=== PATIENT | female | born 1930 | race African-American/Black ===

== ENCOUNTER 2017-09-29 08:50 | Inpatient (IN) | payer MEDICARE, MEDICAID ==
[2017-09-29] VITALS (18 sets, daily range): BP systolic 123–152; BP diastolic 64–94
[~2017-09-29] VITALS: Ht 167.6 cm; Wt 72.6 kg
[2017-09-29 09:31] LABS: BASOPHILS % 0.6 % (0.0-2.0); EOSINOPHILS % 0.3 % (0.0-5.0); HEMATOCRIT. 35.7 % (36.0-48.0); HEMOGLOBIN. 11.1 g/dL (12.0-16.0); LYMPHOCYTES % 16.1 % (20.0-50.0); MEAN CORPUSCULAR HEMOGLOBIN 25.3 pg (28.0-32.0); MEAN CORPUSCULAR VOLUME 81.1 fL (81.0-99.0); MEAN PLATELET VOLUME 7.8 fl (7.4-10.4); MONOCYTES % 5.8 % (2.0-8.0); NEUTROPHILS % 77.2 % (40.0-76.0); PLATELET 314 x1000/uL (130-400); RED CELL DISTRIBUTION WIDTH 16.3 % (11.6-14.6)
[2017-09-29 09:39] LABS: CHLORIDE 92 mEq/L (98-107)
[2017-09-29 09:41] LABS: D-DIMER 0.56 mg/L FEU (<0.50); INR 1.1; PROTHROMBIN TIME 11.4 sec (9.4-11.6)
[2017-09-29] MEDS ORDERED: PROPOFOL 10MG/ML 100ML 100 ML IV SCH (09:45)
[2017-09-29 09:56] LABS: AMMONIA 14 uMol/L (<32)
[2017-09-29 10:01] LABS: BG BASE EXCESS -3.1 mmol/L (-2.0-2.0); BG CARBOXYHEMOGLOBIN 0.9 % (0.5-1.5); BG DEOXYHEMOGLOBIN 0.8 % (0.0-5.0); BG FRACTION INSPIRED OXYGEN 100; BG HCO3 ACT 28.1 mmol/L (22.0-26.0); BG METHEMOGLOBIN 0.1 % (0.0-1.5); BG OXYGEN SATURATION 99.2 % (92.0-98.5); BG OXYHEMOGLOBIN 98.2 % (94.0-97.0); BG PCO2 87.9 mmHg (35.0-45.0); BG PH 7.122 (7.350-7.450); BG PO2 218.1 mmHg (75.0-100.0); BG SAMPLE SITE RIGHT BRACHIAL; BG TIDAL VOLUME(mL) 550 mL; BG TOTAL HEMOGLOBIN 12.2 g/dL (12.0-18.0); BG VENT MODE VENT - A/C; BG VENT RATE 16 set
[2017-09-29 10:21] LABS: CLARITY URINE CLOUDY (CLEAR); COLOR URINE YELLOW (YELLOW); KETONES URINE NEGATIVE (NEGATIVE); LEUKOCYTE ESTERASE URINE NEGATIVE (NEGATIVE); NITRITE URINE NEGATIVE (NEGATIVE); OCCULT BLOOD URINE 1+ (NEGATIVE); PROTEIN URINE 3+ (NEGATIVE); SPECIFIC GRAVITY URINE 1.028 (1.005-1.030)
[2017-09-29 10:59] LABS: *AMPHETAMINES SCREEN URINE NEGATIVE (NEGATIVE); *BARBITURATES SCREEN URINE NEGATIVE (NEGATIVE); *COCAINE SCREEN URINE NEGATIVE (NEGATIVE)
[2017-09-29 11:00] LABS: *BENZODIAZEPINES SCREEN URINE NEGATIVE (NEGATIVE); CANNABINOID URINE SCREEN NEGATIVE (NEGATIVE); METHADONE URINE SCREEN NEGATIVE (NEGATIVE); OPIATES URINE SCREEN NEGATIVE (NEGATIVE); PHENCYCLIDINE URINE SCREEN NEGATIVE (NEGATIVE)
[2017-09-29 12:07] LABS: INR 1.1; PROTHROMBIN TIME 11.3 sec (9.4-11.6)
[2017-09-29 12:15] LABS: BG BASE EXCESS 2.4 mmol/L (-2.0-2.0); BG CARBOXYHEMOGLOBIN 0.8 % (0.5-1.5); BG DEOXYHEMOGLOBIN 0.2 % (0.0-5.0); BG FRACTION INSPIRED OXYGEN 100; BG HCO3 ACT 24.7 mmol/L (22.0-26.0); BG METHEMOGLOBIN 0.1 % (0.0-1.5); BG OXYGEN SATURATION 99.8 % (92.0-98.5); BG OXYHEMOGLOBIN 98.9 % (94.0-97.0); BG PCO2 30.6 mmHg (35.0-45.0); BG PH 7.524 (7.350-7.450); BG PO2 329.7 mmHg (75.0-100.0); BG SAMPLE SITE RIGHT BRACHIAL; BG TIDAL VOLUME(mL) 550 mL; BG TOTAL HEMOGLOBIN 11.2 g/dL (12.0-18.0); BG VENT MODE VENT - A/C; BG VENT RATE 20 set
[2017-09-29] MEDS ORDERED: DEXT 5%/0.45% NACL 1000ML 1,000 ML IV SCH (12:43)
[2017-09-29] MEDS ORDERED: CLONIDINE 0.1MG TABLET PO PRN (12:45)
[2017-09-29] MEDS ORDERED: GUAIFENESIN 200MG/10ML SUGAR FREE UDC PO PRN (12:45)
[2017-09-29] MEDS ORDERED: IPRATROPIUM/ALBUTEROL 0.5-3(2.5)MG/3ML NEB INH PRN (12:45)
[2017-09-29] MEDS ORDERED: MAGNESIUM/ALUMINUM HYDROXIDE/SIMETHICONE 30ML UDC PO PRN (12:45)
[2017-09-29] MEDS ORDERED: ONDANSETRON HCL 4MG/2ML VIAL IV PRN (12:45)
[2017-09-29] MEDS ORDERED: NA PHOS,M-B/NA PHOS,DI-BA ENEMA 118ML PR PRN (12:45)
[2017-09-29] MEDS ORDERED: MORPHINE SULFATE 2 MG/ML CPJ (NOT FOR IM USE) IV PRN (12:45)
[2017-09-29] MEDS ORDERED: NOREPINEPHRINE 16 MG in SODIUM CHLORIDE 0.9% 234 ML IV SCH (13:15)
[2017-09-29] MEDS ORDERED: ASPIRIN 325MG EC TABLET PO SCH (13:15)
[2017-09-29] MEDS ORDERED: ATOR40TA70 PO (13:45)
[2017-09-29] MEDS ORDERED: ASPI-1159 PO (13:45)
[2017-09-29] MEDS ORDERED: CARV6.2548 PO (13:45)
[2017-09-29] MEDS ORDERED: CHOL400T15 MT (13:45)
[2017-09-29] MEDS ORDERED: QUET25TA PO (13:45)
[2017-09-29] MEDS ORDERED: FURO20TA4 PO (13:45)
[2017-09-29] MEDS ORDERED: ENOXAPARIN 40MG/0.4ML SYR SUBCUT SCH (14:00)
[2017-09-29] MEDS ORDERED: LIDOCAINE HCL/PF 1% 10 MG/ML 5ML VIAL ONE (14:16)
[2017-09-29] MEDS ORDERED: ETOMIDATE 2MG/ML 10ML VIAL IV ONE (14:43)
[2017-09-29] MEDS ORDERED: SUCCINYLCHOLINE CHLORIDE 200MG/10ML VIAL IV ONE (14:43)
[2017-09-29 16:28] LABS: CREATINE KINASE MB FRACTION 5.5 ng/mL (0.5-3.6)
[2017-09-29] MEDS: AZITHROMYCIN 500 MG in SODIUM CHLORIDE 0.9% 250 ML IV SCH (17:32)
[2017-09-29] MEDS: FUROSEMIDE 40MG/4ML VIAL IVP SCH (17:34)
[2017-09-29] MEDS: PANTOPRAZOLE SODIUM 40 MG/VIAL IV SCH (17:34)
[2017-09-29] MEDS: CEFTRIAXONE 1 G PREMIX 50 ML IV SCH (17:34)
[2017-09-29] MEDS: SPIRONOLACTONE 25MG TABLET PO SCH ×2 (17:35→21:03)
[2017-09-29] MEDS: PROPOFOL 10MG/ML 100ML 100 ML IV PRN (17:46)
[2017-09-29] MEDS: DEXT 5%/0.45% NACL 1000ML 1,000 ML IV SCH (19:05)
[2017-09-29] MEDS: IPRATROPIUM/ALBUTEROL 0.5-3(2.5)MG/3ML NEB HHN SCH ×2 (19:59→23:55)
[2017-09-29] MEDS ORDERED: DEXTROSE 50% WATER 50ML SYRINGE IV PRN (21:30)
[2017-09-30] VITALS (52 sets, daily range): BP systolic 100–164; BP diastolic 51–98
[2017-09-30] MEDS: PROPOFOL 10MG/ML 100ML 100 ML IV PRN ×5 (00:37→23:31)
[2017-09-30 00:44] LABS: CREATINE KINASE 247 IU/L (26-192); CREATINE KINASE MB FRACTION 3.8 ng/mL (0.5-3.6)
[2017-09-30] MEDS: IPRATROPIUM/ALBUTEROL 0.5-3(2.5)MG/3ML NEB HHN SCH ×5 (04:13→20:17)
[2017-09-30 05:42] LABS: BASOPHILS % 0.2 % (0.0-2.0); EOSINOPHILS % 0.4 % (0.0-5.0); HEMATOCRIT. 33.6 % (36.0-48.0); LYMPHOCYTES % 16.2 % (20.0-50.0); MEAN CORPUSCULAR HEMOGLOBIN 25.5 pg (28.0-32.0); MEAN PLATELET VOLUME 8.3 fl (7.4-10.4); MONOCYTES % 11.8 % (2.0-8.0); NEUTROPHILS % 71.4 % (40.0-76.0); PLATELET 286 x1000/uL (130-400); RED BLOOD CELL COUNT 4.31 mill/uL (4.2-5.4); RED CELL DISTRIBUTION WIDTH 16.7 % (11.6-14.6)
[2017-09-30] MEDS: FUROSEMIDE 40MG/4ML VIAL IVP SCH ×2 (05:44→18:31)
[2017-09-30 06:15] LABS: CHLORIDE 96 mEq/L (98-107)
[2017-09-30] MEDS ORDERED: BLOOD SUGAR DIAGNOSTIC STRIP TEST SCH (07:50)
[2017-09-30 08:19] LABS: BG BASE EXCESS 7.3 mmol/L (-2.0-2.0); BG CARBOXYHEMOGLOBIN 0.8 % (0.5-1.5); BG DEOXYHEMOGLOBIN 1.7 % (0.0-5.0); BG FRACTION INSPIRED OXYGEN 50; BG HCO3 ACT 29.3 mmol/L (22.0-26.0); BG METHEMOGLOBIN 0.1 % (0.0-1.5); BG OXYGEN SATURATION 98.3 % (92.0-98.5); BG OXYHEMOGLOBIN 97.4 % (94.0-97.0); BG PCO2 32.3 mmHg (35.0-45.0); BG PH 7.576 (7.350-7.450); BG PO2 105.9 mmHg (75.0-100.0); BG SAMPLE SITE LEFT RADIAL; BG TIDAL VOLUME(mL) 550 mL; BG TOTAL HEMOGLOBIN 11.2 g/dL (12.0-18.0); BG VENT MODE VENT - A/C; BG VENT RATE 14 set
[2017-09-30] MEDS ORDERED: INSULIN LISPRO 100 UNITS/ML SUBCUT SCH (08:20)
[2017-09-30] MEDS: PANTOPRAZOLE SODIUM 40 MG/VIAL IV SCH (09:54)
[2017-09-30] MEDS: ENOXAPARIN 80MG/0.8ML SYR SUBCUT SCH ×2 (09:54→21:51)
[2017-09-30] MEDS: CLOPIDOGREL 75MG TABLET PO SCH (09:54)
[2017-09-30] MEDS: POTASSIUM CHLORIDE 20MEQ/PACKET NG SCH (09:54)
[2017-09-30] MEDS: SPIRONOLACTONE 25MG TABLET PO SCH ×2 (09:55→21:47)
[2017-09-30] MEDS: ASPIRIN 81MG TABLET PO SCH (10:55)
[2017-09-30 11:15] LABS: T4 FREE 1.33 ng/dL (0.76-1.46)
[2017-09-30] MEDS: LOSARTAN POTASSIUM 25 MG TABLET PO SCH (11:39)
[2017-09-30] MEDS: INSULIN LISPRO 100 UNITS/ML SUBCUT SCH ×2 (12:00→17:31)
[2017-09-30] MEDS: BLOOD SUGAR DIAGNOSTIC STRIP TEST SCH ×2 (12:27→17:31)
[2017-09-30] MEDS: AZITHROMYCIN 500 MG in SODIUM CHLORIDE 0.9% 250 ML IV SCH (13:26)
[2017-09-30] MEDS: CEFTRIAXONE 1 G PREMIX 50 ML IV SCH (13:26)
[2017-09-30] MEDS: DEXT 5%/0.45% NACL 1000ML 1,000 ML IV SCH (13:31)
[2017-09-30 15:07] LABS: CREATINE KINASE MB FRACTION 1.4 ng/mL (0.5-3.6)
[2017-09-30] MEDS: CARVEDILOL 3.125 MG TABLET PO SCH (21:46)
[2017-10-01] VITALS (49 sets, daily range): BP systolic 98–147; BP diastolic 37–94
[2017-10-01 00:12] LABS: CREATINE KINASE MB FRACTION 1.3 ng/mL (0.5-3.6)
[2017-10-01] MEDS: BLOOD SUGAR DIAGNOSTIC STRIP TEST SCH ×4 (00:16→17:36)
[2017-10-01] MEDS: IPRATROPIUM/ALBUTEROL 0.5-3(2.5)MG/3ML NEB HHN SCH ×6 (00:34→20:40)
[2017-10-01] MEDS: INSULIN LISPRO 100 UNITS/ML SUBCUT SCH ×4 (00:38→17:36)
[2017-10-01 06:51] LABS: CREATINE KINASE MB FRACTION 0.9 ng/mL (0.5-3.6)
[2017-10-01] MEDS: FUROSEMIDE 40MG/4ML VIAL IVP SCH (07:15)
[2017-10-01 07:33] LABS: CHLORIDE 99 mEq/L (98-107)
[2017-10-01 07:36] LABS: HEMATOCRIT 33.4 % (36.0-48.0); HEMOGLOBIN 10.8 g/dL (12.0-16.0); MEAN CORPUSCULAR HEMOGLOBIN 25.5 pg (28.0-32.0); MEAN CORPUSCULAR VOLUME 78.8 fL (81.0-99.0); PLATELET 291 x1000/uL (130-400); RED BLOOD CELL COUNT 4.24 mill/uL (4.2-5.4); RED CELL DISTRIBUTION WIDTH 17.2 % (11.6-14.6)
[2017-10-01 08:19] LABS: BG BASE EXCESS 6.1 mmol/L (-2.0-2.0); BG CARBOXYHEMOGLOBIN 0.3 % (0.5-1.5); BG DEOXYHEMOGLOBIN 2.2 % (0.0-5.0); BG FRACTION INSPIRED OXYGEN 50; BG HCO3 ACT 30.8 mmol/L (22.0-26.0); BG METHEMOGLOBIN 0.3 % (0.0-1.5); BG OXYGEN SATURATION 97.8 % (92.0-98.5); BG OXYHEMOGLOBIN 97.2 % (94.0-97.0); BG PH 7.453 (7.350-7.450); BG SAMPLE SITE LEFT RADIAL; BG TIDAL VOLUME(mL) 550 mL; BG TOTAL HEMOGLOBIN 11.4 g/dL (12.0-18.0); BG VENT MODE VENT - A/C; BG VENT RATE 10 set
[2017-10-01] MEDS: PROPOFOL 10MG/ML 100ML 100 ML IV PRN ×2 (08:33→17:55)
[2017-10-01] MEDS: CARVEDILOL 3.125 MG TABLET PO SCH ×2 (08:41→21:00)
[2017-10-01] MEDS: POTASSIUM CHLORIDE 20MEQ/PACKET NG SCH (08:41)
[2017-10-01] MEDS: ASPIRIN 81MG TABLET PO SCH (08:41)
[2017-10-01] MEDS: PANTOPRAZOLE SODIUM 40 MG/VIAL IV SCH (08:41)
[2017-10-01] MEDS: AZITHROMYCIN 500 MG TABLET NG SCH (08:42)
[2017-10-01] MEDS: CLOPIDOGREL 75MG TABLET PO SCH (08:42)
[2017-10-01] MEDS: SPIRONOLACTONE 25MG TABLET PO SCH ×2 (08:42→21:29)
[2017-10-01] MEDS: ENOXAPARIN 40MG/0.4ML SYR SUBCUT SCH (08:43)
[2017-10-01] MEDS: CEFTRIAXONE 1 G PREMIX 50 ML IV SCH (08:52)
[2017-10-01] MEDS ORDERED: ASPIRIN 81MG TABLET PO SCH (09:00)
[2017-10-01] MEDS ORDERED: LOSARTAN POTASSIUM 25 MG TABLET PO SCH (09:00)
[2017-10-01] MEDS: DEXT 5%/0.45% NACL 1000ML 1,000 ML IV SCH (10:24)
[2017-10-01] MEDS: LOSARTAN POTASSIUM 25 MG TABLET PO SCH (10:25)
[2017-10-01 15:24] LABS: BG BASE EXCESS 2.7 mmol/L (-2.0-2.0); BG CARBOXYHEMOGLOBIN 0.6 % (0.5-1.5); BG DEOXYHEMOGLOBIN 2.2 % (0.0-5.0); BG FRACTION INSPIRED OXYGEN 50; BG HCO3 ACT 28.2 mmol/L (22.0-26.0); BG METHEMOGLOBIN 0.2 % (0.0-1.5); BG OXYGEN SATURATION 97.8 % (92.0-98.5); BG PCO2 47.8 mmHg (35.0-45.0); BG PH 7.389 (7.350-7.450); BG PO2 110.7 mmHg (75.0-100.0); BG PRESSURE SUPPORT 14; BG SAMPLE SITE RIGHT BRACHIAL; BG TIDAL VOLUME(mL) 550 mL; BG TOTAL HEMOGLOBIN 11.3 g/dL (12.0-18.0); BG VENT MODE VENT - SIMV; BG VENT RATE 8 set
[2017-10-02] VITALS (40 sets, daily range): BP systolic 95–140; BP diastolic 50–76
[2017-10-02] MEDS: IPRATROPIUM/ALBUTEROL 0.5-3(2.5)MG/3ML NEB HHN SCH ×6 (00:17→20:59)
[2017-10-02] MEDS: INSULIN LISPRO 100 UNITS/ML SUBCUT SCH ×4 (06:00→18:00)
[2017-10-02] MEDS: BLOOD SUGAR DIAGNOSTIC STRIP TEST SCH ×4 (06:00→18:51)
[2017-10-02] MEDS: PROPOFOL 10MG/ML 100ML 100 ML IV PRN (07:02)
[2017-10-02] MEDS: CLOPIDOGREL 75MG TABLET PO SCH (09:10)
[2017-10-02] MEDS: FUROSEMIDE 40MG/4ML VIAL IVP SCH (09:10)
[2017-10-02] MEDS: PANTOPRAZOLE SODIUM 40 MG/VIAL IV SCH (09:10)
[2017-10-02] MEDS: POTASSIUM CHLORIDE 20MEQ/PACKET NG SCH (09:10)
[2017-10-02] MEDS: LOSARTAN POTASSIUM 25 MG TABLET PO SCH (09:11)
[2017-10-02] MEDS: AZITHROMYCIN 500 MG TABLET NG SCH (09:11)
[2017-10-02] MEDS: ASPIRIN 81MG TABLET PO SCH (09:11)
[2017-10-02] MEDS: ENOXAPARIN 40MG/0.4ML SYR SUBCUT SCH (09:12)
[2017-10-02] MEDS: CARVEDILOL 3.125 MG TABLET PO SCH ×2 (09:14→21:41)
[2017-10-02] MEDS: SPIRONOLACTONE 25MG TABLET PO SCH ×2 (09:15→21:00)
[2017-10-02 09:22] LABS: BG BASE EXCESS 4.3 mmol/L (-2.0-2.0); BG CARBOXYHEMOGLOBIN 0.6 % (0.5-1.5); BG DEOXYHEMOGLOBIN 2.1 % (0.0-5.0); BG FRACTION INSPIRED OXYGEN 50; BG HCO3 ACT 31.6 mmol/L (22.0-26.0); BG METHEMOGLOBIN 0.2 % (0.0-1.5); BG OXYGEN SATURATION 97.9 % (92.0-98.5); BG OXYHEMOGLOBIN 97.1 % (94.0-97.0); BG PCO2 61.5 mmHg (35.0-45.0); BG PH 7.329 (7.350-7.450); BG PO2 117.1 mmHg (75.0-100.0); BG PRESSURE SUPPORT 14; BG SAMPLE SITE RIGHT RADIAL; BG TIDAL VOLUME(mL) 550 mL; BG TOTAL HEMOGLOBIN 11.5 g/dL (12.0-18.0); BG VENT MODE VENT - SIMV; BG VENT RATE 4 set
[2017-10-02] MEDS: CEFTRIAXONE 1 G PREMIX 50 ML IV SCH (09:34)
[2017-10-02 10:30] LABS: HEMATOCRIT 31.4 % (36.0-48.0); HEMOGLOBIN 10.1 g/dL (12.0-16.0); MEAN CORPUSCULAR HEMOGLOBIN 25.4 pg (28.0-32.0); MEAN CORPUSCULAR VOLUME 79.3 fL (81.0-99.0); PLATELET 265 x1000/uL (130-400); RED BLOOD CELL COUNT 3.96 mill/uL (4.2-5.4)
[2017-10-02 10:36] LABS: CHLORIDE 103 mEq/L (98-107)
[2017-10-02] MEDS: MORPHINE SULFATE 4 MG/ML CPJ (NOT FOR IM USE) IV PRN (12:30)
[2017-10-02] MEDS: QUETIAPINE FUMARATE 25MG TABLET PO SCH (15:25)
[2017-10-02] MEDS ORDERED: PROPOFOL 10MG/ML 100ML 100 ML IV PRN (15:30)
[2017-10-03] VITALS (36 sets, daily range): BP systolic 75–174; BP diastolic 36–110
[2017-10-03] MEDS: BLOOD SUGAR DIAGNOSTIC STRIP TEST SCH ×4 (00:14→17:26)
[2017-10-03] MEDS: IPRATROPIUM/ALBUTEROL 0.5-3(2.5)MG/3ML NEB HHN SCH ×6 (00:30→21:09)
[2017-10-03] MEDS: INSULIN LISPRO 100 UNITS/ML SUBCUT SCH ×4 (06:00→17:26)
[2017-10-03] MEDS: MORPHINE SULFATE 4 MG/ML CPJ (NOT FOR IM USE) IV PRN (08:28)
[2017-10-03] MEDS: ENOXAPARIN 40MG/0.4ML SYR SUBCUT SCH (08:34)
[2017-10-03] MEDS: CARVEDILOL 3.125 MG TABLET PO SCH ×2 (08:35→22:34)
[2017-10-03] MEDS: ASPIRIN 81MG TABLET PO SCH (08:35)
[2017-10-03] MEDS: CLOPIDOGREL 75MG TABLET PO SCH (08:35)
[2017-10-03] MEDS: SPIRONOLACTONE 25MG TABLET PO SCH ×2 (08:36→22:50)
[2017-10-03] MEDS: AZITHROMYCIN 500 MG TABLET NG SCH (08:36)
[2017-10-03] MEDS: POTASSIUM CHLORIDE 20MEQ/PACKET NG SCH (08:36)
[2017-10-03] MEDS: PANTOPRAZOLE SODIUM 40 MG/VIAL IV SCH (08:36)
[2017-10-03] MEDS: FUROSEMIDE 40MG/4ML VIAL IVP SCH (08:36)
[2017-10-03] MEDS: QUETIAPINE FUMARATE 25MG TABLET PO SCH (08:36)
[2017-10-03] MEDS: LOSARTAN POTASSIUM 25 MG TABLET PO SCH (08:36)
[2017-10-03] MEDS: CEFTRIAXONE 1 G PREMIX 50 ML IV SCH (08:37)
[2017-10-03 09:52] LABS: BG BASE EXCESS 9.8 mmol/L (-2.0-2.0); BG CARBOXYHEMOGLOBIN 0.7 % (0.5-1.5); BG CPAP (cmH2O) 0 cm(H2O); BG DEOXYHEMOGLOBIN 5.5 % (0.0-5.0); BG HCO3 ACT 38.2 mmol/L (22.0-26.0); BG METHEMOGLOBIN 0.3 % (0.0-1.5); BG OXYGEN SATURATION 94.4 % (92.0-98.5); BG OXYHEMOGLOBIN 93.5 % (94.0-97.0); BG PCO2 74.7 mmHg (35.0-45.0); BG PH 7.327 (7.350-7.450); BG PO2 76.9 mmHg (75.0-100.0); BG SAMPLE SITE RIGHT RADIAL; BG TOTAL HEMOGLOBIN 11.3 g/dL (12.0-18.0); BG VENT MODE VENT - CPAP
[2017-10-03] MEDS ORDERED: LORAZEPAM 2MG/ML CPJ IV PRN (11:00)
[2017-10-03] MEDS ORDERED: MORPHINE SULFATE 4 MG/ML CPJ (NOT FOR IM USE) IV PRN (11:00)
[2017-10-03 15:11] LABS: BG BASE EXCESS 6.9 mmol/L (-2.0-2.0); BG CARBOXYHEMOGLOBIN 0.8 % (0.5-1.5); BG CPAP (cmH2O) 0 cm(H2O); BG HCO3 ACT 33.5 mmol/L (22.0-26.0); BG METHEMOGLOBIN 0.1 % (0.0-1.5); BG OXYHEMOGLOBIN 96.1 % (94.0-97.0); BG PH 7.379 (7.350-7.450); BG PO2 94.2 mmHg (75.0-100.0); BG SAMPLE SITE RIGHT RADIAL; BG TOTAL HEMOGLOBIN 11.2 g/dL (12.0-18.0); BG VENT MODE VENT - CPAP
[2017-10-03] MEDS: DIPHENHYDRAMINE 50MG/ML VIAL IV PRN (22:51)
[2017-10-04] VITALS (113 sets, daily range): BP systolic 87–223; BP diastolic 39–132
[2017-10-04] MEDS: IPRATROPIUM/ALBUTEROL 0.5-3(2.5)MG/3ML NEB HHN SCH ×7 (00:04→23:57)
[2017-10-04] MEDS: MIDAZOLAM HCL 100 MG in DEXT 5% WATER 80 ML IV PRN (05:57)
[2017-10-04] MEDS: FENTANYL CITRATE/PF 500 MCG in SODIUM CHLORIDE 0.9% 40 ML IV PRN ×2 (06:07→14:46)
[2017-10-04 06:21] LABS: BG BASE EXCESS 7.4 mmol/L (-2.0-2.0); BG CARBOXYHEMOGLOBIN 0.3 % (0.5-1.5); BG DEOXYHEMOGLOBIN 1.1 % (0.0-5.0); BG FRACTION INSPIRED OXYGEN 100; BG HCO3 ACT 32.4 mmol/L (22.0-26.0); BG METHEMOGLOBIN 0.3 % (0.0-1.5); BG OXYGEN SATURATION 98.9 % (92.0-98.5); BG OXYHEMOGLOBIN 98.3 % (94.0-97.0); BG PH 7.447 (7.350-7.450); BG PO2 140.8 mmHg (75.0-100.0); BG SAMPLE SITE RIGHT BRACHIAL; BG TIDAL VOLUME(mL) 550 mL; BG TOTAL HEMOGLOBIN 10.6 g/dL (12.0-18.0); BG VENT MODE VENT - A/C; BG VENT RATE 14 set
[2017-10-04] MEDS: INSULIN LISPRO 100 UNITS/ML SUBCUT SCH ×5 (06:31→23:42)
[2017-10-04] MEDS: BLOOD SUGAR DIAGNOSTIC STRIP TEST SCH ×5 (06:31→23:42)
[2017-10-04 08:32] LABS: BASOPHILS % 0.3 % (0.0-2.0); EOSINOPHILS % 1.8 % (0.0-5.0); HEMATOCRIT. 28.5 % (36.0-48.0); HEMOGLOBIN. 8.8 g/dL (12.0-16.0); LYMPHOCYTES % 14.4 % (20.0-50.0); MEAN CORPUSCULAR HEMOGLOBIN 24.8 pg (28.0-32.0); MEAN PLATELET VOLUME 8.1 fl (7.4-10.4); MONOCYTES % 10.1 % (2.0-8.0); NEUTROPHILS % 73.4 % (40.0-76.0); PLATELET 292 x1000/uL (130-400); RED BLOOD CELL COUNT 3.56 mill/uL (4.2-5.4); RED CELL DISTRIBUTION WIDTH 16.7 % (11.6-14.6)
[2017-10-04 08:39] LABS: CHLORIDE 101 mEq/L (98-107)
[2017-10-04] MEDS: CARVEDILOL 3.125 MG TABLET PO SCH ×2 (08:49→23:43)
[2017-10-04] MEDS: LOSARTAN POTASSIUM 25 MG TABLET PO SCH (08:49)
[2017-10-04] MEDS: SPIRONOLACTONE 25MG TABLET PO SCH ×2 (09:00→23:44)
[2017-10-04] MEDS: CLOPIDOGREL 75MG TABLET PO SCH (09:01)
[2017-10-04] MEDS: AZITHROMYCIN 500 MG TABLET NG SCH (09:01)
[2017-10-04] MEDS: PANTOPRAZOLE SODIUM 40 MG/VIAL IV SCH (09:02)
[2017-10-04] MEDS: ENOXAPARIN 40MG/0.4ML SYR SUBCUT SCH (09:02)
[2017-10-04] MEDS: ASPIRIN 81MG TABLET PO SCH (09:02)
[2017-10-04] MEDS: QUETIAPINE FUMARATE 25MG TABLET PO SCH (09:02)
[2017-10-04] MEDS: POTASSIUM CHLORIDE 20MEQ/PACKET NG SCH (09:03)
[2017-10-04] MEDS: FUROSEMIDE 40MG/4ML VIAL IVP SCH (09:03)
[2017-10-04] MEDS: CEFTRIAXONE 1 G PREMIX 50 ML IV SCH (09:03)
[2017-10-04] MEDS ORDERED: ETOMIDATE 2MG/ML 10ML VIAL IV ONE (09:24)
[2017-10-04] MEDS ORDERED: NORMAL SALINE 0.9% 10 ML SYR ONE (09:24)
[2017-10-05] VITALS (47 sets, daily range): BP systolic 88–142; BP diastolic 54–97
[2017-10-05] MEDS: IPRATROPIUM/ALBUTEROL 0.5-3(2.5)MG/3ML NEB HHN SCH ×5 (03:53→20:12)
[2017-10-05] MEDS: BLOOD SUGAR DIAGNOSTIC STRIP TEST SCH ×3 (05:51→17:58)
[2017-10-05] MEDS: INSULIN LISPRO 100 UNITS/ML SUBCUT SCH ×3 (05:52→17:58)
[2017-10-05] MEDS: FENTANYL CITRATE/PF 500 MCG in SODIUM CHLORIDE 0.9% 40 ML IV PRN (06:01)
[2017-10-05 06:14] LABS: PROTHROMBIN TIME 10.8 sec (9.4-11.6)
[2017-10-05 06:20] LABS: CHLORIDE 104 mEq/L (98-107)
[2017-10-05 06:23] LABS: BASOPHILS % 0.7 % (0.0-2.0); EOSINOPHILS % 5.7 % (0.0-5.0); HEMATOCRIT. 28.6 % (36.0-48.0); HEMOGLOBIN. 9.1 g/dL (12.0-16.0); LYMPHOCYTES % 17.9 % (20.0-50.0); MEAN CORPUSCULAR HEMOGLOBIN 25.6 pg (28.0-32.0); MEAN CORPUSCULAR VOLUME 80.4 fL (81.0-99.0); MONOCYTES % 11.2 % (2.0-8.0); NEUTROPHILS % 64.5 % (40.0-76.0); PLATELET 261 x1000/uL (130-400); RED BLOOD CELL COUNT 3.56 mill/uL (4.2-5.4); RED CELL DISTRIBUTION WIDTH 16.9 % (11.6-14.6)
[2017-10-05] MEDS: PANTOPRAZOLE SODIUM 40 MG/VIAL IV SCH (09:27)
[2017-10-05] MEDS: CARVEDILOL 3.125 MG TABLET PO SCH ×2 (09:28→20:45)
[2017-10-05] MEDS: QUETIAPINE FUMARATE 25MG TABLET PO SCH ×2 (09:28→20:46)
[2017-10-05] MEDS: LOSARTAN POTASSIUM 25 MG TABLET PO SCH (09:28)
[2017-10-05] MEDS: AZITHROMYCIN 500 MG TABLET NG SCH (09:28)
[2017-10-05] MEDS: SPIRONOLACTONE 25MG TABLET PO SCH ×2 (09:28→20:45)
[2017-10-05] MEDS: FUROSEMIDE 40MG/4ML VIAL IVP SCH (09:28)
[2017-10-05] MEDS: POTASSIUM CHLORIDE 20MEQ/PACKET NG SCH (09:29)
[2017-10-05] MEDS: CEFTRIAXONE 1 G PREMIX 50 ML IV SCH (09:32)
[2017-10-05] MEDS: MIDAZOLAM HCL 100 MG in DEXT 5% WATER 80 ML IV PRN (09:36)
[2017-10-05] MEDS ORDERED: CEFAZOLIN 1000MG PREMIX 50 ML IV SCH (12:00)
[2017-10-06] VITALS (31 sets, daily range): BP systolic 97–131; BP diastolic 58–76
[2017-10-06] MEDS: IPRATROPIUM/ALBUTEROL 0.5-3(2.5)MG/3ML NEB HHN SCH ×6 (00:15→21:02)
[2017-10-06] MEDS: BLOOD SUGAR DIAGNOSTIC STRIP TEST SCH ×4 (00:42→18:03)
[2017-10-06] MEDS: FENTANYL CITRATE/PF 500 MCG in SODIUM CHLORIDE 0.9% 40 ML IV PRN (03:08)
[2017-10-06] MEDS: INSULIN LISPRO 100 UNITS/ML SUBCUT SCH ×4 (06:30→18:00)
[2017-10-06] MEDS: QUETIAPINE FUMARATE 25MG TABLET PO SCH (09:59)
[2017-10-06] MEDS: POTASSIUM CHLORIDE 20MEQ/PACKET NG SCH (09:59)
[2017-10-06] MEDS: LOSARTAN POTASSIUM 25 MG TABLET PO SCH (09:59)
[2017-10-06] MEDS: FUROSEMIDE 40MG/4ML VIAL IVP SCH (09:59)
[2017-10-06] MEDS: AZITHROMYCIN 500 MG TABLET NG SCH (09:59)
[2017-10-06] MEDS: SPIRONOLACTONE 25MG TABLET PO SCH ×2 (09:59→22:15)
[2017-10-06] MEDS: PANTOPRAZOLE SODIUM 40 MG/VIAL IV SCH (09:59)
[2017-10-06] MEDS: CARVEDILOL 3.125 MG TABLET PO SCH ×2 (09:59→22:01)
[2017-10-06 10:04] LABS: BG BASE EXCESS 4.3 mmol/L (-2.0-2.0); BG BILEVEL POS AIRWAY PRESSURE 18/5; BG CARBOXYHEMOGLOBIN 0.2 % (0.5-1.5); BG HCO3 ACT 30.5 mmol/L (22.0-26.0); BG METHEMOGLOBIN 0.1 % (0.0-1.5); BG OXYHEMOGLOBIN 96.7 % (94.0-97.0); BG PCO2 53.4 mmHg (35.0-45.0); BG PH 7.375 (7.350-7.450); BG PO2 108.9 mmHg (75.0-100.0); BG SAMPLE SITE RIGHT RADIAL; BG TOTAL HEMOGLOBIN 11.2 g/dL (12.0-18.0); BG VENT MODE MASK - BIPAP; BG VENT RATE 20 set
[2017-10-06] MEDS: CEFTRIAXONE 1 G PREMIX 50 ML IV SCH (10:05)
[2017-10-06 15:54] LABS: BG BASE EXCESS 5.3 mmol/L (-2.0-2.0); BG BILEVEL POS AIRWAY PRESSURE 18/5; BG CARBOXYHEMOGLOBIN 0.7 % (0.5-1.5); BG DEOXYHEMOGLOBIN 2.9 % (0.0-5.0); BG METHEMOGLOBIN 0.3 % (0.0-1.5); BG OXYGEN SATURATION 97.1 % (92.0-98.5); BG OXYHEMOGLOBIN 96.1 % (94.0-97.0); BG PCO2 50.2 mmHg (35.0-45.0); BG PH 7.409 (7.350-7.450); BG PO2 100.3 mmHg (75.0-100.0); BG SAMPLE SITE RIGHT BRACHIAL; BG TOTAL HEMOGLOBIN 12.3 g/dL (12.0-18.0); BG VENT MODE MASK - BIPAP; BG VENT RATE 20 set
[2017-10-06] MEDS: ENOXAPARIN 40MG/0.4ML SYR SUBCUT SCH (18:03)
[2017-10-06] MEDS ORDERED: DOPAMINE 800MG PREMIX 250 ML IV ONE (20:07)
[2017-10-07] VITALS (41 sets, daily range): BP systolic 79–148; BP diastolic 34–106
[2017-10-07] MEDS: IPRATROPIUM/ALBUTEROL 0.5-3(2.5)MG/3ML NEB HHN SCH ×6 (00:39→20:57)
[2017-10-07] MEDS: BLOOD SUGAR DIAGNOSTIC STRIP TEST SCH ×4 (00:41→18:01)
[2017-10-07] MEDS: QUETIAPINE FUMARATE 25MG TABLET PO SCH ×2 (01:40→20:38)
[2017-10-07] MEDS: INSULIN LISPRO 100 UNITS/ML SUBCUT SCH ×4 (06:00→18:00)
[2017-10-07] MEDS ORDERED: QUETIAPINE FUMARATE 25MG TABLET PO SCH (09:00)
[2017-10-07] MEDS: PANTOPRAZOLE SODIUM 40 MG/VIAL IV SCH (09:14)
[2017-10-07] MEDS: FUROSEMIDE 40MG/4ML VIAL IVP SCH (09:14)
[2017-10-07] MEDS: SPIRONOLACTONE 25MG TABLET PO SCH ×2 (09:15→20:39)
[2017-10-07] MEDS: LOSARTAN POTASSIUM 25 MG TABLET PO SCH (09:15)
[2017-10-07] MEDS: CARVEDILOL 3.125 MG TABLET PO SCH ×2 (09:15→20:38)
[2017-10-07] MEDS: POTASSIUM CHLORIDE 20MEQ/PACKET NG SCH (09:16)
[2017-10-07] MEDS: ENOXAPARIN 40MG/0.4ML SYR SUBCUT SCH (09:16)
[2017-10-07 09:33] LABS: BASOPHILS % 0.6 % (0.0-2.0); HEMATOCRIT. 31.1 % (36.0-48.0); LYMPHOCYTES % 23.4 % (20.0-50.0); MEAN CORPUSCULAR HEMOGLOBIN 25.6 pg (28.0-32.0); MEAN CORPUSCULAR VOLUME 80.1 fL (81.0-99.0); MEAN PLATELET VOLUME 7.7 fl (7.4-10.4); MONOCYTES % 10.6 % (2.0-8.0); NEUTROPHILS % 61.4 % (40.0-76.0); PLATELET 314 x1000/uL (130-400); RED BLOOD CELL COUNT 3.88 mill/uL (4.2-5.4); RED CELL DISTRIBUTION WIDTH 16.6 % (11.6-14.6)
[2017-10-07 09:39] LABS: CHLORIDE 105 mEq/L (98-107)
[2017-10-07 09:56] LABS: BG BASE EXCESS 6.8 mmol/L (-2.0-2.0); BG CARBOXYHEMOGLOBIN 0.9 % (0.5-1.5); BG DEOXYHEMOGLOBIN 4.2 % (0.0-5.0); BG FRACTION INSPIRED OXYGEN 50; BG HCO3 ACT 33.5 mmol/L (22.0-26.0); BG METHEMOGLOBIN 0.3 % (0.0-1.5); BG OXYGEN SATURATION 95.7 % (92.0-98.5); BG OXYHEMOGLOBIN 94.6 % (94.0-97.0); BG PCO2 58.9 mmHg (35.0-45.0); BG PH 7.373 (7.350-7.450); BG PO2 84.4 mmHg (75.0-100.0); BG SAMPLE SITE RIGHT BRACHIAL; BG TOTAL HEMOGLOBIN 11.4 g/dL (12.0-18.0); BG VENT MODE MASK - VENTI
[2017-10-07] MEDS: LORAZEPAM 2MG/ML CPJ IV PRN (14:31)
[2017-10-08] VITALS (16 sets, daily range): BP systolic 91–158; BP diastolic 50–123
[2017-10-08] MEDS: BLOOD SUGAR DIAGNOSTIC STRIP TEST SCH ×4 (00:15→17:49)
[2017-10-08] MEDS: LORAZEPAM 2MG/ML CPJ IV PRN (00:25)
[2017-10-08] MEDS: IPRATROPIUM/ALBUTEROL 0.5-3(2.5)MG/3ML NEB HHN SCH ×6 (00:47→20:44)
[2017-10-08 05:02] LABS: BASOPHILS % 0.3 % (0.0-2.0); EOSINOPHILS % 3.8 % (0.0-5.0); HEMATOCRIT. 33.7 % (36.0-48.0); HEMOGLOBIN. 10.6 g/dL (12.0-16.0); LYMPHOCYTES % 19.6 % (20.0-50.0); MEAN CORPUSCULAR HEMOGLOBIN 25.7 pg (28.0-32.0); MEAN CORPUSCULAR VOLUME 81.5 fL (81.0-99.0); MONOCYTES % 10.7 % (2.0-8.0); NEUTROPHILS % 65.6 % (40.0-76.0); PLATELET 319 x1000/uL (130-400); RED BLOOD CELL COUNT 4.14 mill/uL (4.2-5.4); RED CELL DISTRIBUTION WIDTH 16.2 % (11.6-14.6)
[2017-10-08 05:13] LABS: CHLORIDE 106 mEq/L (98-107)
[2017-10-08] MEDS: INSULIN LISPRO 100 UNITS/ML SUBCUT SCH ×4 (06:00→17:49)
[2017-10-08 08:59] LABS: BG CARBOXYHEMOGLOBIN 0.5 % (0.5-1.5); BG DEOXYHEMOGLOBIN 2.4 % (0.0-5.0); BG FRACTION INSPIRED OXYGEN 50; BG HCO3 ACT 32.8 mmol/L (22.0-26.0); BG METHEMOGLOBIN 0.1 % (0.0-1.5); BG OXYGEN SATURATION 97.6 % (92.0-98.5); BG PCO2 66.9 mmHg (35.0-45.0); BG PH 7.308 (7.350-7.450); BG PO2 110.6 mmHg (75.0-100.0); BG SAMPLE SITE RIGHT RADIAL; BG TOTAL HEMOGLOBIN 10.5 g/dL (12.0-18.0); BG VENT MODE MASK - VENTI
[2017-10-08] MEDS: ENOXAPARIN 40MG/0.4ML SYR SUBCUT SCH (09:24)
[2017-10-08] MEDS: POTASSIUM CHLORIDE 20MEQ/PACKET NG SCH (09:24)
[2017-10-08] MEDS: LOSARTAN POTASSIUM 25 MG TABLET PO SCH (09:25)
[2017-10-08] MEDS: CARVEDILOL 3.125 MG TABLET PO SCH ×2 (09:25→20:56)
[2017-10-08] MEDS: DOCUSATE SODIUM 100MG CAPSULE PO PRN ×2 (09:25→09:44)
[2017-10-08] MEDS: PANTOPRAZOLE SODIUM 40 MG/VIAL IV SCH (09:25)
[2017-10-08] MEDS: FUROSEMIDE 40MG/4ML VIAL IVP SCH (09:25)
[2017-10-08] MEDS: SPIRONOLACTONE 25MG TABLET PO SCH ×2 (09:45→20:56)
[2017-10-08] MEDS: DIPHENHYDRAMINE 50MG/ML VIAL IV PRN (10:47)
[2017-10-08] MEDS: QUETIAPINE FUMARATE 25MG TABLET PO SCH (20:56)
[2017-10-09] VITALS (11 sets, daily range): BP systolic 117–155; BP diastolic 62–91
[2017-10-09] MEDS: IPRATROPIUM/ALBUTEROL 0.5-3(2.5)MG/3ML NEB HHN SCH ×6 (01:08→20:46)
[2017-10-09] MEDS: INSULIN LISPRO 100 UNITS/ML SUBCUT SCH ×4 (06:00→17:29)
[2017-10-09] MEDS: BLOOD SUGAR DIAGNOSTIC STRIP TEST SCH ×4 (06:09→17:28)
[2017-10-09] MEDS: PANTOPRAZOLE SODIUM 40 MG/VIAL IV SCH (09:12)
[2017-10-09] MEDS: FUROSEMIDE 40MG/4ML VIAL IVP SCH (09:12)
[2017-10-09] MEDS: SPIRONOLACTONE 25MG TABLET PO SCH ×2 (09:13→21:23)
[2017-10-09] MEDS: POTASSIUM CHLORIDE 20MEQ/PACKET NG SCH (09:13)
[2017-10-09] MEDS: CARVEDILOL 3.125 MG TABLET PO SCH ×2 (09:13→21:23)
[2017-10-09] MEDS: ENOXAPARIN 40MG/0.4ML SYR SUBCUT SCH (09:13)
[2017-10-09] MEDS: LOSARTAN POTASSIUM 25 MG TABLET PO SCH (10:06)
[2017-10-09] MEDS ORDERED: BISACODYL 10MG SUPP PR PRN (11:00)
[2017-10-09] MEDS ORDERED: BISACODYL 5MG TABLET PO PRN (11:00)
[2017-10-09] MEDS: DOCUSATE SODIUM 250MG CAPSULE PO SCH (14:23)
[2017-10-09] MEDS: ACETAMINOPHEN 325MG TABLET PO PRN (15:19)
[2017-10-09] MEDS: QUETIAPINE FUMARATE 25MG TABLET PO SCH (21:23)
[2017-10-10] VITALS (12 sets, daily range): BP systolic 98–143; BP diastolic 52–97
[2017-10-10] MEDS: IPRATROPIUM/ALBUTEROL 0.5-3(2.5)MG/3ML NEB HHN SCH ×6 (00:35→20:41)
[2017-10-10] MEDS: INSULIN LISPRO 100 UNITS/ML SUBCUT SCH ×5 (05:19→23:49)
[2017-10-10] MEDS: BLOOD SUGAR DIAGNOSTIC STRIP TEST SCH ×5 (05:19→23:49)
[2017-10-10] MEDS: ENOXAPARIN 40MG/0.4ML SYR SUBCUT SCH (08:31)
[2017-10-10] MEDS: FUROSEMIDE 40MG/4ML VIAL IVP SCH (08:31)
[2017-10-10] MEDS: PANTOPRAZOLE SODIUM 40 MG/VIAL IV SCH (08:31)
[2017-10-10] MEDS: POTASSIUM CHLORIDE 20MEQ/PACKET NG SCH (08:32)
[2017-10-10] MEDS: CARVEDILOL 3.125 MG TABLET PO SCH ×2 (08:32→21:18)
[2017-10-10] MEDS: LOSARTAN POTASSIUM 25 MG TABLET PO SCH (08:32)
[2017-10-10] MEDS: SPIRONOLACTONE 25MG TABLET PO SCH ×2 (08:32→21:17)
[2017-10-10] MEDS: DOCUSATE SODIUM 250MG CAPSULE PO SCH (08:37)
[2017-10-10] MEDS: QUETIAPINE FUMARATE 25MG TABLET PO SCH (21:17)
[2017-10-11] VITALS (12 sets, daily range): BP systolic 98–125; BP diastolic 54–78
[2017-10-11] MEDS: IPRATROPIUM/ALBUTEROL 0.5-3(2.5)MG/3ML NEB HHN SCH ×6 (00:42→21:36)
[2017-10-11] MEDS: INSULIN LISPRO 100 UNITS/ML SUBCUT SCH ×4 (06:00→21:00)
[2017-10-11] MEDS: BLOOD SUGAR DIAGNOSTIC STRIP TEST SCH ×4 (06:39→21:29)
[2017-10-11] MEDS: ENOXAPARIN 40MG/0.4ML SYR SUBCUT SCH (08:49)
[2017-10-11] MEDS: PANTOPRAZOLE SODIUM 40 MG/VIAL IV SCH (08:49)
[2017-10-11] MEDS: FUROSEMIDE 40MG/4ML VIAL IVP SCH (08:49)
[2017-10-11] MEDS: SPIRONOLACTONE 25MG TABLET PO SCH ×2 (08:50→21:29)
[2017-10-11] MEDS: POTASSIUM CHLORIDE 20MEQ/PACKET NG SCH (08:50)
[2017-10-11] MEDS: DOCUSATE SODIUM 250MG CAPSULE PO SCH (08:51)
[2017-10-11] MEDS: LOSARTAN POTASSIUM 25 MG TABLET PO SCH (08:51)
[2017-10-11] MEDS: CARVEDILOL 3.125 MG TABLET PO SCH ×2 (08:51→21:28)
[2017-10-11] MEDS: MEMANTINE HCL 5MG TABLET PO SCH (10:05)
[2017-10-11 11:11] LABS: AMMONIA 31 uMol/L (<32)
[2017-10-11 11:30] LABS: FOLIC ACID (FOLATE) SERUM 10.2 ng/mL (>5.38)
[2017-10-11 11:39] LABS: T4 FREE 1.12 ng/dL (0.76-1.46)
[2017-10-11] MEDS: QUETIAPINE FUMARATE 25MG TABLET PO SCH (21:28)
[2017-10-12] VITALS (12 sets, daily range): BP systolic 95–157; BP diastolic 32–72
[2017-10-12] MEDS: IPRATROPIUM/ALBUTEROL 0.5-3(2.5)MG/3ML NEB HHN SCH ×7 (00:22→23:52)
[2017-10-12] MEDS: BLOOD SUGAR DIAGNOSTIC STRIP TEST SCH ×4 (07:15→21:00)
[2017-10-12] MEDS: INSULIN LISPRO 100 UNITS/ML SUBCUT SCH ×4 (07:30→21:00)
[2017-10-12] MEDS: MEMANTINE HCL 5MG TABLET PO SCH (08:21)
[2017-10-12] MEDS: LOSARTAN POTASSIUM 25 MG TABLET PO SCH (08:21)
[2017-10-12] MEDS: SPIRONOLACTONE 25MG TABLET PO SCH ×2 (08:22→21:23)
[2017-10-12] MEDS: CARVEDILOL 3.125 MG TABLET PO SCH ×2 (08:22→21:00)
[2017-10-12] MEDS: ENOXAPARIN 40MG/0.4ML SYR SUBCUT SCH (08:23)
[2017-10-12] MEDS: FUROSEMIDE 40MG/4ML VIAL IVP SCH (08:23)
[2017-10-12] MEDS: POTASSIUM CHLORIDE 20MEQ/PACKET NG SCH (08:23)
[2017-10-12] MEDS: PANTOPRAZOLE SODIUM 40 MG/VIAL IV SCH (08:23)
[2017-10-12] MEDS: DOCUSATE SODIUM 250MG CAPSULE PO SCH (08:25)
[2017-10-12] MEDS: QUETIAPINE FUMARATE 25MG TABLET PO SCH (21:23)
[2017-10-13] VITALS (12 sets, daily range): BP systolic 82–148; BP diastolic 21–74
[2017-10-13] MEDS: IPRATROPIUM/ALBUTEROL 0.5-3(2.5)MG/3ML NEB HHN SCH ×6 (03:43→23:47)
[2017-10-13] MEDS: INSULIN LISPRO 100 UNITS/ML SUBCUT SCH ×4 (07:30→21:00)
[2017-10-13] MEDS: BLOOD SUGAR DIAGNOSTIC STRIP TEST SCH ×4 (07:33→20:56)
[2017-10-13] MEDS: PANTOPRAZOLE SODIUM 40 MG/VIAL IV SCH (08:50)
[2017-10-13] MEDS: ENOXAPARIN 40MG/0.4ML SYR SUBCUT SCH (08:50)
[2017-10-13] MEDS: MEMANTINE HCL 5MG TABLET PO SCH (08:50)
[2017-10-13] MEDS: FUROSEMIDE 40MG/4ML VIAL IVP SCH (08:50)
[2017-10-13] MEDS: SPIRONOLACTONE 25MG TABLET PO SCH ×2 (08:51→20:55)
[2017-10-13] MEDS: POTASSIUM CHLORIDE 20MEQ/PACKET NG SCH ×2 (08:51→09:00)
[2017-10-13] MEDS: CARVEDILOL 3.125 MG TABLET PO SCH ×2 (08:51→20:56)
[2017-10-13] MEDS: LOSARTAN POTASSIUM 25 MG TABLET PO SCH (08:51)
[2017-10-13] MEDS: DOCUSATE SODIUM 250MG CAPSULE PO SCH (08:51)
[2017-10-13 09:00] LABS: BG BASE EXCESS 4.9 mmol/L (-2.0-2.0); BG CARBOXYHEMOGLOBIN 0.8 % (0.5-1.5); BG DEOXYHEMOGLOBIN 7.2 % (0.0-5.0); BG FRACTION INSPIRED OXYGEN 21; BG HCO3 ACT 30.5 mmol/L (22.0-26.0); BG METHEMOGLOBIN 0.1 % (0.0-1.5); BG OXYGEN SATURATION 92.7 % (92.0-98.5); BG OXYHEMOGLOBIN 91.9 % (94.0-97.0); BG PCO2 49.5 mmHg (35.0-45.0); BG PH 7.408 (7.350-7.450); BG PO2 67.3 mmHg (75.0-100.0); BG SAMPLE SITE RIGHT RADIAL; BG TOTAL HEMOGLOBIN 12.1 g/dL (12.0-18.0); BG VENT MODE ROOM AIR
[2017-10-13] MEDS: ACETAMINOPHEN 325MG TABLET PO PRN (17:38)
[2017-10-13] MEDS: QUETIAPINE FUMARATE 25MG TABLET PO SCH (20:55)
[2017-10-14] VITALS (11 sets, daily range): BP systolic 108–131; BP diastolic 48–94
[2017-10-14] MEDS: IPRATROPIUM/ALBUTEROL 0.5-3(2.5)MG/3ML NEB HHN SCH ×5 (03:50→20:28)
[2017-10-14] MEDS: INSULIN LISPRO 100 UNITS/ML SUBCUT SCH ×4 (07:30→20:18)
[2017-10-14] MEDS: BLOOD SUGAR DIAGNOSTIC STRIP TEST SCH ×4 (07:50→20:18)
[2017-10-14] MEDS: ENOXAPARIN 40MG/0.4ML SYR SUBCUT SCH (08:59)
[2017-10-14] MEDS: POTASSIUM CHLORIDE 20MEQ/PACKET NG SCH (08:59)
[2017-10-14] MEDS: SPIRONOLACTONE 25MG TABLET PO SCH ×2 (09:00→20:13)
[2017-10-14] MEDS: PANTOPRAZOLE SODIUM 40 MG/VIAL IV SCH (09:00)
[2017-10-14] MEDS: DOCUSATE SODIUM 250MG CAPSULE PO SCH (09:00)
[2017-10-14] MEDS: FUROSEMIDE 40MG/4ML VIAL IVP SCH (09:00)
[2017-10-14] MEDS: LOSARTAN POTASSIUM 25 MG TABLET PO SCH (09:00)
[2017-10-14] MEDS: CARVEDILOL 3.125 MG TABLET PO SCH ×2 (09:01→20:19)
[2017-10-14] MEDS: MEMANTINE HCL 5MG TABLET PO SCH (09:04)
[2017-10-14] MEDS: PANTOPRAZOLE 40MG DR TABLET PO SCH (10:48)
[2017-10-14] MEDS: FUROSEMIDE 40MG TABLET PO SCH (10:48)
[2017-10-14] MEDS: QUETIAPINE FUMARATE 25MG TABLET PO SCH (20:14)
[2017-10-15] VITALS (12 sets, daily range): BP systolic 99–137; BP diastolic 58–77
[2017-10-15] MEDS: IPRATROPIUM/ALBUTEROL 0.5-3(2.5)MG/3ML NEB HHN SCH ×6 (00:22→20:10)
[2017-10-15] MEDS: INSULIN LISPRO 100 UNITS/ML SUBCUT SCH ×4 (07:30→20:25)
[2017-10-15] MEDS: BLOOD SUGAR DIAGNOSTIC STRIP TEST SCH ×4 (07:31→20:23)
[2017-10-15] MEDS: DOCUSATE SODIUM 250MG CAPSULE PO SCH (09:00)
[2017-10-15] MEDS: POTASSIUM CHLORIDE 20MEQ/PACKET NG SCH (09:00)
[2017-10-15] MEDS: SPIRONOLACTONE 25MG TABLET PO SCH ×2 (09:14→20:20)
[2017-10-15] MEDS: LOSARTAN POTASSIUM 25 MG TABLET PO SCH (09:14)
[2017-10-15] MEDS: MEMANTINE HCL 5MG TABLET PO SCH (09:14)
[2017-10-15] MEDS: PANTOPRAZOLE 40MG DR TABLET PO SCH (09:14)
[2017-10-15] MEDS: FUROSEMIDE 40MG TABLET PO SCH (09:14)
[2017-10-15] MEDS: CARVEDILOL 3.125 MG TABLET PO SCH ×2 (09:15→21:24)
[2017-10-15] MEDS: ENOXAPARIN 40MG/0.4ML SYR SUBCUT SCH (09:15)
[2017-10-15] MEDS: QUETIAPINE FUMARATE 25MG TABLET PO SCH (20:20)
[2017-10-16] VITALS (12 sets, daily range): BP systolic 90–127; BP diastolic 45–69
[2017-10-16] MEDS: IPRATROPIUM/ALBUTEROL 0.5-3(2.5)MG/3ML NEB HHN SCH ×6 (00:48→21:39)
[2017-10-16] MEDS: INSULIN LISPRO 100 UNITS/ML SUBCUT SCH ×4 (07:30→21:00)
[2017-10-16] MEDS: BLOOD SUGAR DIAGNOSTIC STRIP TEST SCH ×4 (08:03→21:00)
[2017-10-16] MEDS: LOSARTAN POTASSIUM 25 MG TABLET PO SCH (08:19)
[2017-10-16] MEDS: SPIRONOLACTONE 25MG TABLET PO SCH ×2 (08:19→20:39)
[2017-10-16] MEDS: POTASSIUM CHLORIDE 20MEQ/PACKET NG SCH (08:19)
[2017-10-16] MEDS: FUROSEMIDE 40MG TABLET PO SCH (08:19)
[2017-10-16] MEDS: DOCUSATE SODIUM 100MG CAPSULE PO PRN (08:19)
[2017-10-16] MEDS: CARVEDILOL 3.125 MG TABLET PO SCH ×2 (08:20→20:39)
[2017-10-16] MEDS: ENOXAPARIN 40MG/0.4ML SYR SUBCUT SCH (08:22)
[2017-10-16] MEDS: MEMANTINE HCL 5MG TABLET PO SCH (08:27)
[2017-10-16] MEDS: DOCUSATE SODIUM 250MG CAPSULE PO SCH (08:27)
[2017-10-16] MEDS: ACETAMINOPHEN 325MG TABLET PO PRN (15:51)
[2017-10-16] MEDS: QUETIAPINE FUMARATE 25MG TABLET PO SCH (20:36)
[2017-10-17] VITALS (12 sets, daily range): BP systolic 93–117; BP diastolic 30–68
[2017-10-17] MEDS: IPRATROPIUM/ALBUTEROL 0.5-3(2.5)MG/3ML NEB HHN SCH ×5 (00:29→17:58)
[2017-10-17] MEDS: BLOOD SUGAR DIAGNOSTIC STRIP TEST SCH ×3 (07:30→17:30)
[2017-10-17] MEDS: INSULIN LISPRO 100 UNITS/ML SUBCUT SCH ×3 (07:30→17:30)
[2017-10-17] MEDS: DOCUSATE SODIUM 250MG CAPSULE PO SCH (08:56)
[2017-10-17] MEDS: LOSARTAN POTASSIUM 25 MG TABLET PO SCH (08:56)
[2017-10-17] MEDS: FUROSEMIDE 40MG TABLET PO SCH (08:56)
[2017-10-17] MEDS: POTASSIUM CHLORIDE 20MEQ/PACKET NG SCH ×2 (08:56→09:00)
[2017-10-17] MEDS: MEMANTINE HCL 5MG TABLET PO SCH (08:56)
[2017-10-17] MEDS: SPIRONOLACTONE 25MG TABLET PO SCH (08:57)
[2017-10-17] MEDS: CARVEDILOL 3.125 MG TABLET PO SCH (08:57)
[2017-10-17] MEDS ORDERED: ENOXAPARIN 40MG/0.4ML SYR SUBCUT SCH (09:00)
== END 2017-10-17 19:30 | DRG 207 ==
LOC: ER 08:50 → CVICU 11:28 → ENRESERV 11:41 → SUPCPDRO 12:43 → 5EST 10-08 11:58
PROVIDERS: ADMIT Internal Medicine; ATTEND Internal Medicine
PROC: 5A1955Z Respiratory Ventilation, Greater than 96 Consecutive Hours (ICD-10-PCS; principal; 2017-09-29)
PROC: 0BH17EZ Insertion of Endotracheal Airway into Trachea, Via Natural or Artificial Opening (ICD-10-PCS; 2017-09-29)
PROC: 5A09357 Assistance with Respiratory Ventilation, Less than 24 Consecutive Hours, Continuous Positive Airway Pressure (ICD-10-PCS; 2017-10-04)
PROC: 0BH17EZ Insertion of Endotracheal Airway into Trachea, Via Natural or Artificial Opening (ICD-10-PCS; 2017-10-04)
PROC: 5A1945Z Respiratory Ventilation, 24-96 Consecutive Hours (ICD-10-PCS; 2017-10-04)
PROC: 5A09457 Assistance with Respiratory Ventilation, 24-96 Consecutive Hours, Continuous Positive Airway Pressure (ICD-10-PCS; 2017-10-06)
PROC: 5A09357 Assistance with Respiratory Ventilation, Less than 24 Consecutive Hours, Continuous Positive Airway Pressure (ICD-10-PCS; 2017-10-07)
PROC: 4A00X4Z Measurement of Central Nervous Electrical Activity, External Approach (ICD-10-PCS; 2017-10-13)
DX: J96.02 Acute respiratory failure with hypercapnia (principal); I21.4 Non-ST elevation (NSTEMI) myocardial infarction; E43 Unspecified severe protein-calorie malnutrition; G92 Toxic encephalopathy; J18.9 Pneumonia, unspecified organism; I50.43 Acute on chronic combined systolic (congestive) and diastolic (congestive) heart failure; E87.2 Acidosis; I11.0 Hypertensive heart disease with heart failure; I42.9 Cardiomyopathy, unspecified; J44.0 Chronic obstructive pulmonary disease with (acute) lower respiratory infection; J44.1 Chronic obstructive pulmonary disease with (acute) exacerbation; E66.2 Morbid (severe) obesity with alveolar hypoventilation; J98.11 Atelectasis; J96.01 Acute respiratory failure with hypoxia; R13.10 Dysphagia, unspecified; R00.1 Bradycardia, unspecified; F99 Mental disorder, not otherwise specified; F03.90 Unspecified dementia, unspecified severity, without behavioral disturbance, psychotic disturbance, mood disturbance, and anxiety; W01.0XXA Fall on same level from slipping, tripping and stumbling without subsequent striking against object, initial encounter; D64.9 Anemia, unspecified; E11.9 Type 2 diabetes mellitus without complications; L30.9 Dermatitis, unspecified; Z83.3 Family history of diabetes mellitus; Z91.14 Patient's other noncompliance with medication regimen; Z68.25 Body mass index [BMI] 25.0-25.9, adult; Y93.89 Activity, other specified; Y92.89 Other specified places as the place of occurrence of the external cause; Y99.8 Other external cause status
CPT/HCPCS: 31500; 36415; 36569; 36600; 70450; 70551; 71045; 76937; 80048; 80053; 80061; 80305; 81003; 82140; 82375; 82550; 82553; 82607; 82746; 82805; 82962; 83036; 83880; 84439; 84443; 84478; 84481; 84484; 85025; 85027; 85379; 85610; 85730; 87040; 87070; 87086; 92610; 93005; 93306; 93880; 93970; 94002; 94003; 94640; 94660; 96374; 97110; 97116; 97162; 97164; 97166; 97530; 99291; A4216; C1725; C9113; J0330; J0456; J0690; J0696; J1200; J1265; J1650; J1815; J1940; J2060; J2250; J2270; J2704; J3010; J3490; J7030; J7050; J7060; J7620